=== PATIENT | male | born 1955 | race Caucasian/White ===

== ENCOUNTER → 2017-08-04 | Outpatient (CLI) | payer BC ==
[2017-08-04] MEDS: NITROGLYCERIN AEROSOL (4.9 GM) (11:44)
[2017-08-04] MEDS: SOD CHLORIDE 0.9% 100 ML (11:45)
[2017-08-04] MEDS: IOHEXOL 350MG/ML 50 ML BTL (11:45)
[2017-08-04] MEDS: IOHEXOL 100 ML (11:45)
[2017-08-04] MEDS: METOPROLOL 5 MG INJ (11:46)
== END | disposition home or self-care (01) ==
LOC: C/S 09:52
DX: R06.00 Dyspnea, unspecified (principal); R07.2 Precordial pain; R94.31 Abnormal electrocardiogram [ECG] [EKG]
CPT/HCPCS: 75574